=== PATIENT | male | born 1965 | race Caucasian/White ===

== ENCOUNTER 2021-10-12 00:34 | Day surgery (SDC) | payer BC, SELFPAY ==
[2021-09-24 13:50] VITALS: BMI 35.6
--- NOTE | 2021-10-09 14:14 | PM.HPGS ---
History of Present Illness History of Present Illness Consent: Risks, benefits, and alternatives have been discussed and questions answered. Patient agrees to proceed with procedure. Chief complaint: hx of colon polyps Narrative: Harlan Avlarado is a 56 year old male Referred for colon cancer screening. He has had polyps removed in the past. Review of Systems Review of Systems: All systems reviewed & are unremarkable except as noted in HPI and below PMFSH Past Medical History Medical History Arthritis Asthma BMI 34.0-34.9,adult BMI 36.0-36.9,adult BMI over 35 Bronchitis Eczema Elevated liver enzymes GERD (gastroesophageal reflux disease) History of colon polyps HTN (hypertension) Hyperlipidemia Insomnia Lumbago with sciatica, left side Protein in urine Surgical History Surgical History History of surgery on arm No pertinent past surgical history Family History Family History Father AA (alcohol abuse) Asthma Lung cancer Diabetes mellitus Hypertension Heart disease Mother Lung cancer Hypertension Depression Thyroid disease Sibling Hypertension Social History Social History Smoking status: Never smoker Additional smoking assessment comments: chewed tobacco for 35 years Alcohol intake: former Alcohol use details: quit drinking 18 years ago Substance use: never Substance use type: does not use Living arrangements: with family Spiritual care concerns: No Meds Home Medications and Allergies Home Medications Medication Instructions Recorded Confirmed Type albuterol sulfate [ProAir HFA] 1 inh INHALATION QID PRN 07/03/19 09/24/21 History fluticasone propion-salmeterol 1 inh INHALATION Q12H 07/03/19 09/24/21 History [Advair Diskus] clobetasol 0.05 % topical cream 1 applic TOPICAL BID #30 g 11/11/20 09/24/21 Rx naproxen 500 mg tablet 500 mg PO BID #180 tablet 01/28/21 09/24/21 Rx omeprazole 40 mg capsule,delayed 40 mg PO DAILY #90 cap 04/16/21 09/24/21 Rx release montelukast 10 mg tablet 10 mg PO DAILY #90 tablet 04/27/21 09/24/21 Rx escitalopram oxalate 10 mg tablet 10 mg PO DAILY #90 tablet 05/18/21 09/24/21 Rx fluticasone propionate 50 1 spray INTRANASAL BID 06/08/21 09/24/21 History mcg/actuation nasal spray,suspension amlodipine 10 mg tablet 10 mg PO DAILY #90 tablet 09/11/21 09/24/21 Rx zolpidem 10 mg tablet 10 mg PO HS PRN #30 tablet 09/17/21 09/24/21 Rx atorvastatin 40 mg tablet 20 mg PO DAILY #45 tablet 09/28/21 Rx Allergies Allergy/AdvReac Type Severity Reaction Status Date / Time No Known Allergies Allergy Verified 10/12/21 08:03 Exam Resp: Auscultation: clear to auscultation bilaterally Cardio: Rate: regular rate Rhythm: regular rhythm GI: GI Palp: Yes Soft to palpation and No Tenderness to palpation present (GI) Assessment and Plan Assessment and plan (1) Colon cancer screening: Code(s): Z12.11 - Encounter for screening for malignant neoplasm of colon Status: Acute Assessment and Plan: Colonoscopy with possible biopsy or polypectomy or cautery or injection of substances.
[2021-10-12 08:04] VITALS: BP 128/96; PULSE 85; RESP 16; TEMP 36.6; O2SAT 97
[2021-10-12 08:05] VITALS: BMI 35.2
[2021-10-12] MEDS: LACTATED RINGERS 1,000 ML 150 ML IV CONT (08:13)
--- NOTE | 2021-10-12 08:36 | WPDANESEPPF ---
Anes - Initial Pre Proc Eval Procedure: Operation Date: 10/12/21 09:00 Proposed Procedures p Screening Colonoscopy - Ian Bartlett MD Date/Time: 10/12/21 08:36 Surgeon: Ian Bartlett MD Pre Op Diagnosis: hx of colon polyps Patient Data Age: 56 Gender: M Height: 1.68 m Weight: 99.1 kg Last Vital Signs Temp 36.6 C 10/12/21 08:04 Pulse 85 10/12/21 08:04 Resp 16 10/12/21 08:04 BP 128/96 H 10/12/21 08:04 Pulse Ox 97 10/12/21 08:04 Allergies Allergy/AdvReac Type Severity Reaction Status Date / Time No Known Allergies Allergy Verified 10/12/21 08:03 Home Medications Medication Instructions Recorded Confirmed Type albuterol sulfate [ProAir HFA] 1 inh INHALATION QID PRN 07/03/19 09/24/21 History fluticasone propion-salmeterol 1 inh INHALATION Q12H 07/03/19 09/24/21 History [Advair Diskus] clobetasol 0.05 % topical cream 1 applic TOPICAL BID #30 g 11/11/20 09/24/21 Rx naproxen 500 mg tablet 500 mg PO BID #180 tablet 01/28/21 09/24/21 Rx omeprazole 40 mg capsule,delayed 40 mg PO DAILY #90 cap 04/16/21 09/24/21 Rx release montelukast 10 mg tablet 10 mg PO DAILY #90 tablet 04/27/21 09/24/21 Rx escitalopram oxalate 10 mg tablet 10 mg PO DAILY #90 tablet 05/18/21 09/24/21 Rx fluticasone propionate 50 1 spray INTRANASAL BID 06/08/21 09/24/21 History mcg/actuation nasal spray,suspension amlodipine 10 mg tablet 10 mg PO DAILY #90 tablet 09/11/21 09/24/21 Rx zolpidem 10 mg tablet 10 mg PO HS PRN #30 tablet 09/17/21 09/24/21 Rx atorvastatin 40 mg tablet 20 mg PO DAILY #45 tablet 09/28/21 Rx Patient hx anesthesia problems: none Family hx anesthesia problems: none Results Review: All pre-operative results and documents have been reviewed as part of the pre-operative evaluation. [facility] Past Medical History Medical History Arthritis Asthma BMI 34.0-34.9,adult BMI 36.0-36.9,adult BMI over 35 Bronchitis Eczema Elevated liver enzymes GERD (gastroesophageal reflux disease) History of colon polyps HTN (hypertension) Hyperlipidemia Insomnia Lumbago with sciatica, left side Protein in urine Surgical History Surgical History History of surgery on arm No pertinent past surgical history Family History Family History Father AA (alcohol abuse) Asthma Lung cancer Diabetes mellitus Hypertension Heart disease Mother Lung cancer Hypertension Depression Thyroid disease Sibling Hypertension Social History Social History Smoking status: Never smoker Additional smoking assessment comments: chewed tobacco for 35 years Alcohol intake: former Alcohol use details: quit drinking 18 years ago Substance use: never Substance use type: does not use Living arrangements: with family Spiritual care concerns: No Anes - Eval Final PreProcedure Day of Procedure 10/12/21 08:36 Patient weight: obese Heart: regular rate and rhythm Lungs: clear to auscultation Airway: Mallampati scale class II Neurological: alert and oriented Last oral intake: >/= 8 hours ASA classification: III Emergent: no Anesthetic plan: proceed Anesthesia type and monitoring: general GIVS and standard monitoring Results Review: All pre-operative results and documents have been reviewed as part of the pre-operative evaluation. Informed Consent: The patient's anesthetic plan and its attendant risks and benefits were discussed with the patient/family/POA. Questions were solicited and answers provided to the satisfaction of the patient/family/POA.
[2021-10-12 09:05] VITALS: BP 103/73; PULSE 79; RESP 19; O2SAT 93
[2021-10-12 09:15] VITALS: BP 105/76; PULSE 73; RESP 23; O2SAT 98
[2021-10-12 09:25] VITALS: BP 145/84; PULSE 69; RESP 24; O2SAT 94
== END 2021-10-12 09:48 | disposition home or self-care (01) ==
PROVIDERS: PCP Nurse Practitioner Family; Visit Provider Internal Medicine Gastroenterology
PROC: 0DJD8ZZ Inspection of Lower Intestinal Tract, Via Natural or Artificial Opening Endoscopic (ICD-10-PCS; CPT 45378; principal; 2021-10-12 09:00)
DX: Z12.11 Encounter for screening for malignant neoplasm of colon (principal); Z86.010 Personal history of colon polyps; Z79.51 Long term (current) use of inhaled steroids; M19.90 Unspecified osteoarthritis, unspecified site; J45.909 Unspecified asthma, uncomplicated; L30.9 Dermatitis, unspecified; K21.9 Gastro-esophageal reflux disease without esophagitis; I10 Essential (primary) hypertension; G47.00 Insomnia, unspecified; R74.01 Elevation of levels of liver transaminase levels; F17.220 Nicotine dependence, chewing tobacco, uncomplicated; E66.9 Obesity, unspecified; Z68.35 Body mass index [BMI] 35.0-35.9, adult
CPT/HCPCS: 45378; J2704; J7120

== ENCOUNTER 2022-03-30 07:23 | Outpatient (CLI) | payer BC, SELFPAY | END 2022-03-30 07:24 | disposition home or self-care (01) | LOC: ANHAUDIO 07:25 | PROVIDERS: PCP Nurse Practitioner Family; Visit Provider Otolaryngology | DX: H93.13 Tinnitus, bilateral (principal); H91.93 Unspecified hearing loss, bilateral | CPT/HCPCS: 92557; 92567 ==

== ENCOUNTER 2023-08-07 10:13 | Emergency (ER) | payer BC, SELFPAY ==
[2023-08-07 10:35] VITALS: BP 144/91; PULSE 109; RESP 20; TEMP 37.2; O2SAT 95
--- NOTE | 2023-08-07 11:06 | ED.URI ---
HPI - URI/Sore Throat General Chief Complaint: Upper Respiratory Infection Stated Complaint: Bodyaches/Cough Time Seen by Provider: 08/07/23 11:06 Source: patient and RN notes reviewed Mode of arrival: ambulatory Limitations: no limitations History of Present Illness HPI Narrative: 58-year-old male presents with concern for cough, headaches, sinus drainage and congestion, fatigue. Reports sore rib cage from coughing. Reports he has been using his ProAir inhaler with some relief. He reports chills. MD elicited complaint: cough Related Data Home Medications Medication Instructions Recorded Confirmed fluticasone propionate 50 1 spray intranasal BID 06/08/21 08/07/23 mcg/actuation nasal spray,suspension (Flonase Allergy Relief) fexofenadine [Adenike Allergy] 1 tab-cap PO DAILY 08/03/23 08/07/23 Allergies Allergy/AdvReac Type Severity Reaction Status Date / Time No Known Allergies Allergy Verified 08/07/23 10:23 Review of Systems Review of Systems: CONSTITUTIONAL: Reports malaise, chills., fatigue denies sweats or fever. EYES: Denies visual changes, redness, or discharge. ENT: Reports rhinorrhea, congestion. Denies sinus pain, otalgia and sore throat. CARDIOVASCULAR: Denies chest pain, palpitations, or edema. RESPIRATORY: Reports cough, rib cage pain. Denies dyspnea. GASTROINTESTINAL: Denies abdominal pain, nausea, vomiting, diarrhea SKIN: Denies rash or itching. MUSCULOSKELETAL: Denies myalgia. NEUROLOGIC: Reports headache. All systems reviewed & are unremarkable except as noted in HPI and below PMFSH Past Medical History Medical History (Updated 08/07/23 @ 11:14 by Radha Ramos NP) Abnormal CBC Anxiety and depression Arthritis Asthma BMI 34.0-34.9,adult BMI 36.0-36.9,adult BMI over 35 Bronchitis Candidiasis Eczema Elevated fasting glucose Elevated liver enzymes GERD (gastroesophageal reflux disease) History of colon polyps Normal colonoscopy on 10/12/2021 with recheck in 5 years. HTN (hypertension) Hyperlipidemia Hypersomnia Insomnia Low back pain Lumbago with sciatica, left side Obesity (BMI 30-39.9) Protein in urine Seasonal allergies Surgical History Surgical History History of surgery on arm No pertinent past surgical history Family History Family History Father AA (alcohol abuse) Asthma Lung cancer Diabetes mellitus Hypertension Heart disease Cerebrovascular accident Mother Lung cancer Hypertension Depression Thyroid disease Sibling Hypertension Grandparent Cancer Hypertension Cerebrovascular accident Grandparent Cancer Hypertension Social History Social History Smoking status: Never smoker Additional smoking assessment comments: chewed tobacco for 35 years Alcohol intake: former Alcohol use details: quit drinking 18 years ago Substance use: never Substance use type: does not use Lack of Transportation: No Lack of Food: Never True Current Housing: I Have Housing Concerned About Future Housing: No Difficulty Paying Gas/Electric Bills: No Difficulty Paying for Meds: No Currently Unemployed: No Education: High School Diploma/GED Difficulty w/ Childcare or Family Care: No Living arrangements: with family Spiritual care concerns: No Comments At time of signature, agree with nursing past medical, surgical, social and family history. There is no relevant family history pertinent to the presenting complaint Exam Narrative: GENERAL: Well-appearing, well-nourished, and in no acute distress. HEAD: Normocephalic EYES: PERRLA, conjunctivae clear ENT: Nares clear. Mucous membranes moist. TM pearly reza with sharp light reflex bilaterally; no tragal tenderness. Oropharynx not erythematous without lesions. Tonsils not enlarged and without exudate, no
== END 2023-08-07 11:20 | disposition home or self-care (01) ==
PROVIDERS: Emergency Provider Nurse Practitioner; PCP Nurse Practitioner Family
DX: J10.1 Influenza due to other identified influenza virus with other respiratory manifestations (principal); E78.5 Hyperlipidemia, unspecified; I10 Essential (primary) hypertension; Z20.822 Contact with and (suspected) exposure to COVID-19
CPT/HCPCS: 87426; 87804; 99213; G0463

== ENCOUNTER 2023-09-27 09:17 | Outpatient (CLI) | payer BC, SELFPAY ==
[2023-10-05 17:29] VITALS: BMI 35.5
--- NOTE | 2023-10-05 17:29 | WPDHOMESLEEP ---
Sleep Study - Home Unattended Date of Study: 09/27/23 Ordering Provider: Anne Burton NP Interpreting Provider: Tamar Cevallos, DO Home Sleep Study Type: Watch PAT Height: 1.68 m Weight: 99.79 kg Body Mass Index: 35.5 Neck Circumference (inches): 18.5 [place]: 14 Reason for Sleep Study Unrefreshing sleep, morning headaches Sleep History The patient is a 58-year-old male that had a sleep study ordered by his primary care for evaluation of sleep apnea. He occasionally awakens from sleep short of breath. He rarely awakens at night with heartburn, belching or cough. He is unsure if he snores. He occasionally has trouble sleeping when he has a cold. He denies waking up gasping for air throughout the night. He occasionally has breathing problems at night observed by himself or others. He denies sweating excessively at night. He rarely has heart palpitations or irregular heartbeats during the night. He occasionally falls asleep during the day but never while driving. He denies sleep paralysis, cataplexy and hypnagogic / hypnopompic hallucinations. He rarely has trouble at school or work due to sleepiness. He denies feeling afraid of going to sleep. He denies having nightmares. He denies remembering his dreams. He frequently has thoughts racing through his mind. He denies feeling sad, depressed and anxious. He occasionally has muscular tension. He occasionally notices parts of his body jerk. He is unsure if he kicks during the night. He occasionally has crawling and aching feelings in his legs and frequently has leg pain during the night. He denies grinding his teeth during sleep and denies awakening with morning jaw pain. He is occasionally bothered by pain during the day and occasionally awakened by pain during the night. He frequently wakes up feeling stiff in the morning. He occasionally wakes up with sore or achy muscles. He denies waking up with pain in the neck, spine and other joints. He goes to bed at 7:30 p.m. on weekdays and between 9-10 p.m. on the weekends. It takes him 30-45 minutes to fall asleep. He wakes up at 3:30 a.m. on weekdays and at 5:00 a.m. on the weekends. When he awakens during the night, he will eat and is able to fall back asleep within 10 minutes. He typically gets 6-7 hours of sleep per night. He does not stay in bed after waking up in the morning. He currently lives with his . He denies consuming any caffeinated beverages within 2 hours of bedtime. He denies engaging in physical exercise before bedtime. He will watch television before falling asleep. He will take naps in the afternoon or the evening and they are refreshing. He consumes 1 caffeinated beverage per day. He denies tobacco, alcohol and recreational drug use. [facility] Past Medical History Medical History Abnormal CBC Anxiety and depression Arthritis Asthma BMI 34.0-34.9,adult BMI 36.0-36.9,adult BMI over 35 Bronchitis Candidiasis Eczema Elevated fasting glucose Elevated liver enzymes GERD (gastroesophageal reflux disease) History of colon polyps Normal colonoscopy on 10/12/2021 with recheck in 5 years. HTN (hypertension) Hyperlipidemia Hypersomnia Insomnia Low back pain Lumbago with sciatica, left side Obesity (BMI 30-39.9) Protein in urine Seasonal allergies Surgical History Surgical History History of surgery on arm No pertinent past surgical history Family History Family History Father AA (alcohol abuse) Asthma Lung cancer Diabetes mellitus Hypertension Heart disease Cerebrovascular accident Mother Lung cancer Hypertension Depression Thyroid disease Sibling Hypertension Grandparent Cancer Hypertension Cerebrovascular accident Grandparent Cancer Hypertension Social History Social History (Revi
== END 2023-09-28 07:30 | disposition home or self-care (01) ==
LOC: ANHCSM 09:18
PROVIDERS: PCP Nurse Practitioner Family; Visit Provider Nurse Practitioner Family
DX: G47.33 Obstructive sleep apnea (adult) (pediatric) (principal); G47.10 Hypersomnia, unspecified; I10 Essential (primary) hypertension; F39 Unspecified mood [affective] disorder
CPT/HCPCS: 95800

== ENCOUNTER 2024-04-07 07:16 | Outpatient (CLI) | payer BC, SELFPAY ==
--- NOTE | ~2024-04-07 | US_ITS ---
US right upper quadrant INDICATION: Jaundice PROCEDURE: Realtime right upper abdominal ultrasound. COMPARISON: No prior studies for comparison. FINDINGS: The pancreas is normal without focal mass or pancreatic ductal dilation. Liver echotexture is increased, consistent with fatty infiltration. There is normal directional flow in the portal ve in. There are gallstones. Gallbladder is contracted limiting evaluation for Common bile duct measures 4 mm. No sonographic Palomares's sign. IMPRESSION: 1: Cholelithiasis. 2: Fatty infiltration of the liver. Reviewed, dictated and finalized at location B.
== END 2024-04-07 07:17 | disposition home or self-care (01) ==
LOC: MICIMG 07:16
PROVIDERS: PCP Nurse Practitioner Family; Visit Provider Nurse Practitioner Family
DX: K80.20 Calculus of gallbladder without cholecystitis without obstruction (principal); K76.0 Fatty (change of) liver, not elsewhere classified
CPT/HCPCS: 76705

== ENCOUNTER 2024-06-11 16:12 | Emergency (ER) | payer BC, SELFPAY ==
[2024-06-11 16:33] VITALS: BP 153/95; PULSE 90; RESP 18; TEMP 36.7; O2SAT 96
[2024-06-11 18:52] VITALS: BP 146/101; PULSE 81; RESP 16; O2SAT 98
--- NOTE | 2024-06-11 19:17 | ED_ITS ---
HPI - Recheck/Abnormal Lab/Rx General Chief Complaint: Recheck/Abnormal Lab/Rx <Yue Gonzalez PA-C - Last Filed: 06/11/24 19:58> Stated Complaint: abn labs <Yue Gonzalez PA-C - Last Filed: 06/11/24 19:58> Time Seen by Provider: 06/11/24 18:52 <Yue Gonzalez PA-C - Last Filed: 06/11/24 19:58> History of Present Illness HPI narrative: 58-year-old male with history of hypertension, hyperlipidemia, GERD, polycythemia presents to the emergency department for elevated bilirubin. Patient states he had outpatient labs drawn a couple days ago. States he was contacted today told to come to the ED due to ?emergently high bilirubin levels uncle. The patient reports a history of alcohol abuse but has been sober for 21 years. He does have history of elevated LFTs in the past and has been told that his liver is scarred but denies diagnosis of cirrhosis. The patient contacted his PCP's office on 02/20 after initiating oral antifungals for toenail fungus from his adjusto writer operator because he began developing yellowing to his eyes. He discontinued this medication and has been obtaining outpatient labs to evaluate the trend of his elevated bilirubin. Per chart review the patient had labs drawn on 03/01/2024 which showed a total bilirubin of 1.7, direct bilirubin of 0.3 direct bilirubin 1.4. On 06/09/2024 his lab showed a total bilirubin of 2.3, direct bilirubin of 0.4 and indirect bilirubin of 1.9. Right upper quadrant ultrasound on 04/07/2024 shows cholelithiasis with fatty infiltration of the liver. Patient states his PCP advised him to come to the ED is a are concerned that he may have a ?gallstone blocking a duct? causing his elevation in his bilirubin. The patient states his eyes are ?reza? but they have been orellana for a few months. He denies fever, nausea vomiting, abdominal pain. He reports having diarrhea for about a month <Yue Gonzalez PA-C - Last Filed: 06/11/24 19:58> Related Data Home Medications: Home Medications ?Medication ?Instructions ?Recorded ?Confirmed ?Last Taken ?Type fluticasone propionate 50 1 spray intranasal BID 06/08/21 03/14/24 Unknown History mcg/actuation nasal spray,suspension (Flonase Allergy Relief) fexofenadine [Adenike Allergy] 1 tab-cap PO DAILY 08/03/23 03/14/24 Unknown History ashwagandha extract PO 01/10/24 03/14/24 Unknown History <Yue Gonzalez PA-C - Last Filed: 06/11/24 19:58> Allergies/Adverse Reactions: Allergies Allergy/AdvReac Type Severity Reaction Status Date / Time No Known Allergies Allergy Verified 03/14/24 11:25 <Yue Gonzalez PA-C - Last Filed: 06/11/24 19:58> Review of Systems 2 Review of Systems: All systems reviewed & are unremarkable except as noted in HPI and below <Yue Gonzalez PA-C - Last Filed: 06/11/24 19:58> [facility] Past Medical History Medical History: Medical History Elevated bilirubin Anxiety Restless legs syndrome Polycythemia Abnormal CBC Hypersomnia Low back pain Anxiety and depression Seasonal allergies Obesity (BMI 30-39.9) Candidiasis Elevated fasting glucose BMI 36.0-36.9,adult Lumbago with sciatica, left side BMI over 35 Protein in urine Elevated liver enzymes Eczema GERD (gastroesophageal reflux disease) History of colon polyps Normal colonoscopy on 10/12/2021 with recheck in 5 years. Insomnia BMI 34.0-34.9,adult Arthritis HTN (hypertension) Hyperlipidemia Bronchitis Asthma <Yue Gonzalez PA-C - Last Filed: 06/11/24 19:58> Surgical History Surgical History: Surgical History History of surgery on arm No pertinent past surgical history <Yue Gonzalez PA-C - Last Filed: 06/11/24 19:58> Family History Family History: Family History Father AA (alcohol abuse) Asthma Lung cancer Diabetes mellitus Hypertension Heart disease Cerebrovascular accident Mother Lung cancer Hypertension Depression Thyroid disease Sibling Hypertension Grandparent Cancer Hypertension Cerebrovascular accident Grandparent Cancer Hypertension <Yue Gonzalez PA-C - Last Filed: 06/11/24 19:58> Social History Social History: Social History Smoking status: Never smoker Additional smoking assessment comments: chewed tobacco for 35 years Alcohol intake: former Alcohol use details: quit drinking 18 years ago Substance use: never Substance use type: does not use Lack of Transportation: No Lack of Food: Never True Current Housing: I Have Housing Concerned About Future Housing: No Difficulty Paying Gas/Electric Bills: No Difficulty Paying for Meds: No Currently Unemployed: No Education: High School Diploma/GED Difficulty w/ Childcare or Family Care: No Living arrangements: with family Spiritual care concerns: No <Yue Gonzalez PA-C - Last Filed: 06/11/24 19:58> Exam 2 Narrative: GENERAL: Well-appearing, well-nourished, and in no acute distress. HEAD: Normocephalic, atraumatic. EYES: PERRLA and EOMI. No scleral icterus, sclerae are mildly dulled and reza ENT: Nares clear, no rhinorrhea or epistaxis. Mucous membranes moist. NECK: Supple. CHEST: Clear to auscultation. No respiratory distress. HEART: Regular rate and rhythm. No murmur heard. Normal peripheral pulses. ABDOMEN: Soft, nontender, nondistended, normal active bowel sounds. No rebound, guarding or rigidity. Negative Palomares's EXTREMITIES: Normal range of motion. No edema. SKIN: Warm, dry, no rash. NEURO: No focal deficits. Alert and oriented x3 <Yue Gonzalez PA-C - Last Filed: 06/11/24 19:58> Course STEAM PLANT OPERATOR/PA Physician Supervision For this patient encounter, I reviewed the STEAM PLANT OPERATOR or PA documentation, treatment plan, and medical decision making and had [id number] time with this patient. I performed all aspects of the MDM as documented. <Zulema Mayers MD - Last Filed: 06/12/24 01:23> Vital Signs Vital signs: Vital Signs Temperature 98.1 F 06/11/24 16:33 Pulse Rate 90 06/11/24 16:33 Respiratory Rate 18 06/11/24 16:33 Blood Pressure 153/95 H 06/11/24 16:33 Pulse Oximetry 96 06/11/24 16:33 Temperature 98.1 F 06/11/24 16:33 Pulse Rate 81 06/11/24 18:52 Respiratory Rate 16 06/11/24 18:52 Blood Pressure 146/101 H 06/11/24 18:52 Pulse Oximetry 98 06/11/24 18:52 <Yue Gonzalez PA-C - Last Filed: 06/11/24 19:58> Vital Signs Temperature 98.1 F 06/11/24 16:33 Pulse Rate 90 06/11/24 16:33 Respiratory Rate 18 06/11/24 16:33 Blood Pressure 153/95 H 06/11/24 16:33 Pulse Oximetry 96 06/11/24 16:33 Temperature 98.1 F 06/11/24 16:33 Pulse Rate 81 06/11/24 18:52 Respiratory Rate 16 06/11/24 18:52 Blood Pressure 146/101 H 06/11/24 18:52 Pulse Oximetry 98 06/11/24 18:52 <Zulema Mayers MD - Last Filed: 06/12/24 01:23> MDM - Recheck/Abnormal Lab/Rx MDM Narrative Medical decision making narrative: 58-year-old male presents to the emergency department after his PCP recommended him to come to the ED for abnormal bilirubin drawn on outpatient labs. Vitals without the or pressure, otherwise unremarkable. Patient is resting comfortably in exam bed and largely well appearing. He does have mild dull and reza sclera but no scleral icterus, no jaundice. His abdomen is soft and nontender. Negative [place]. CBC shows no leukocytosis, no anemia. Chemistries are largely unremarkable. Hepatic panel shows a total bilirubin of 1.9, direct bilirubin is 0. AST,, ALT and alk-phos are normal. Patient has normal bilirubin levels range between 1.6-2 per chart review. I feel this is likely a chronic Issue and not explained by acute pathology. Feel he is safe to follow up outpatient. I did discuss strict ED return precautions. He is agreeable with the plan verbalized understanding. Discharged in stable condition. <Yue Gonzalez PA-C - Last Filed: 06/11/24 19:58> Lab Data Result diagrams: 06/11/24 19:20 06/11/24 19:20 <Yue Gonzalez PA-C - Last Filed: 06/11/24 19:58> Labs: Lab Results 06/11/24 Range/Units 19:20 WBC 8.6 (4.5-10.0) K/mm3 RBC 4.62 (4.6-6.20) M/mm3 Hgb 16.0 (14.0-18.0) g/dL Hct 43.0 (42.0-52.0) % MCV 93.1 (80-100) fl MCH 34.6 H (26-34) pg MCHC 37.2 H (32-36) g/dl RDW 11.9 (11.5-14.5) % Plt Count 250 (150-375) k/mm3 MPV 9.1 (7.4-10.4) fl Immature Gran % (Auto) 0.2 (0-0.5) % Neut % (Auto) 63.2 (45.5-73.1) % Lymph % (Auto) 23.3 (18.3-44.2) % [place] % (Auto) 10.4 H (2.6-8.5) % Eos % (Auto) 2.3 (0-4.4) % Baso % (Auto) 0.6 (0.2-1.2) % Lymph # (Auto) 2.00 (0.9-3.2) K/mm3 [place] # (Auto) 0.9 H (0.1-0.6) K/mm3 Eos # (Auto) 0.2 (0-0.3) K/mm3 Baso # (Auto) 0.1 (0.0-0.1) K/mm3 Abs Immat Gran (auto) 0.02 (0.00-0.031) K/mm3 Absolute Neuts (auto) 5.4 (1.3-6.7) K/mm3 Absolute Nucleated RBC 0.000 (0.0-0.012) K/mm3 Nucleated RBC % 0.0 (0.0-0.2) % Sodium 139 (137-145) mmol/L Potassium 3.8 (3.4-5.0) mmol/L Chloride 108 H (98-107) mmol/L Carbon Dioxide 25 (22-30) mmol/L Anion Gap 6 (4-12) mmol/L BUN 16 (9-20) mg/dL Creatinine 0.90 (0.7-1.3) mg/dL Estim Creat Clear Calc 84 ml/min Estimated GFR > 60 (59 - ) Glucose 97 (65-110) mg/dL Calcium 9.4 (8.4-10.2) mg/dL Total Bilirubin 1.9 H (0.2-1.3) mg/dL Direct Bilirubin 0.0 (0-0.3) mg/dL AST 36 (17-59) U/L ALT 45 (6-50) U/L Alkaline Phosphatase 115 (38-126) U/L Total Protein 7.0 (6.3-8.2) g/dL Albumin 4.6 (3.5-5.1) g/dL <Yue Gonzalez PA-C - Last Filed: 06/11/24 19:58> Lab Results 06/11/24 Range/Units 19:20 WBC 8.6 (4.5-10.0) K/mm3 RBC 4.62 (4.6-6.20) M/mm3 Hgb 16.0 (14.0-18.0) g/dL Hct 43.0 (42.0-52.0) % MCV 93.1 (80-100) fl MCH 34.6 H (26-34) pg MCHC 37.2 H (32-36) g/dl RDW 11.9 (11.5-14.5) % Plt Count 250 (150-375) k/mm3 MPV 9.1 (7.4-10.4) fl Immature Gran % (Auto) 0.2 (0-0.5) % Neut % (Auto) 63.2 (45.5-73.1) % Lymph % (Auto) 23.3 (18.3-44.2) % [place] % (Auto) 10.4 H (2.6-8.5) % Eos % (Auto) 2.3 (0-4.4) % Baso % (Auto) 0.6 (0.2-1.2) % Lymph # (Auto) 2.00 (0.9-3.2) K/mm3 [place] # (Auto) 0.9 H (0.1-0.6) K/mm3 Eos # (Auto) 0.2 (0-0.3) K/mm3 Baso # (Auto) 0.1 (0.0-0.1) K/mm3 Abs Immat Gran (auto) 0.02 (0.00-0.031) K/mm3 Absolute Neuts (auto) 5.4 (1.3-6.7) K/mm3 Absolute Nucleated RBC 0.000 (0.0-0.012) K/mm3 Nucleated RBC % 0.0 (0.0-0.2) % Sodium 139 (137-145) mmol/L Potassium 3.8 (3.4-5.0) mmol/L Chloride 108 H (98-107) mmol/L Carbon Dioxide 25 (22-30) mmol/L Anion Gap 6 (4-12) mmol/L BUN 16 (9-20) mg/dL Creatinine 0.90 (0.7-1.3) mg/dL Estim Creat Clear Calc 84 ml/min Estimated GFR > 60 (59 - ) Glucose 97 (65-110) mg/dL Calcium 9.4 (8.4-10.2) mg/dL Total Bilirubin 1.9 H (0.2-1.3) mg/dL Direct Bilirubin 0.0 (0-0.3) mg/dL AST 36 (17-59) U/L ALT 45 (6-50) U/L Alkaline Phosphatase 115 (38-126) U/L Total Protein 7.0 (6.3-8.2) g/dL Albumin 4.6 (3.5-5.1) g/dL <Zulema Mayers MD - Last Filed: 06/12/24 01:23> Discharge Plan Discharge Clinical Impression: Elevated bilirubin <Yue Gonzalez PA-C - Last Filed: 06/11/24 19:58> Patient Disposition: Home, Self-Care <Yue Gonzalez PA-C - Last Filed: 06/11/24 19:58> Condition: Stable <Yue Gonzalez PA-C - Last Filed: 06/11/24 19:58> Instructions: Antibiotic Form, Normal Exam (ED) <Yue Gonzalez PA-C - Last Filed: 06/11/24 19:58> Additional Instructions: Your evaluated in the emergency department for elevated bilirubin levels seen on outpatient labs. Her bilirubin level here is 1.9. Your labs normally range between 1.6 and 2. I feel this is likely a chronic issue and be followed up with her primary care provider. Return to the emergency department if you develop fever, abdominal pain, vomiting, or other concerning symptoms. Follow up with the GI doctor. <Yue Gonzalez PA-C - Last Filed: 06/11/24 19:58> Patient Language: Tunisian <Yue Gonzalez PA-C - Last Filed: 06/11/24 19:58> Prescriptions: No Action nystatin 100,000 unit/gram cream 1 applic topical BID Qty: 30 5RF Rx Instructions: discontinue the combination cream for yeast. clobetasol 0.05 % cream 1 applic topical BID Qty: 45 2RF Rx Instructions: apply up to 2 weeks at a time fexofenadine [Adenike Allergy] 1 tab-cap PO DAILY escitalopram oxalate 20 mg tablet 20 mg PO DAILY Qty: 90 3RF atorvastatin 10 mg tablet 10 mg PO DAILY Qty: 90 3RF montelukast 10 mg tablet 10 mg PO DAILY Qty: 90 3RF ashwagandha extract PO fluticasone propionate [Flonase Allergy Relief] 50 mcg/actuation spray,suspension 1 spray intranasal BID Rx Instructions: administer into each nostril sildenafil [Viagra] 100 mg tablet 100 mg PO DAILY PRN (Reason: sexual activity) Qty: 5 11RF Rx Instructions: administer 30 minutes to 4 hours before activity amlodipine 10 mg tablet 10 mg PO DAILY Qty: 90 3RF albuterol sulfate 90 mcg/actuation HFA aerosol inhaler 1 - 2 inh inhalation Q4-6H PRN (Reason: shortness of breath or wheezing) Qty: 8.5 11RF zolpidem 10 mg tablet 10 mg PO HS PRN (Reason: insomnia) Qty: 30 5RF omeprazole 40 mg capsule,delayed release(DR/EC) 40 mg PO DAILY Qty: 90 3RF fluticasone propion-salmeterol [Wixela Inhub] 250-50 mcg/dose blister with device 1 inh inhalation BID Qty: 60 11RF fexofenadine-pseudoephedrine [Adenike-D 12 Hour] 60-120 mg tablet extended release 12 hr 1 tablet PO Q12H PRN (Reason: allergy symptoms) Qty: 30 2RF naproxen 500 mg tablet 500 mg PO BID Qty: 180 3RF <Yue Gonzalez PA-C - Last Filed: 06/11/24 19:58> Follow-up/Referrals: Anne Burton NP [Primary Care Provider] - Shamar Jacobs MD [Physician] - <Yue Gonzalez PA-C - Last Filed: 06/11/24 19:58>
[2024-06-11 19:28] LABS: Basophils Absolute Auto 0.1 K/mm3 (0.0-0.1); Basophils Percent Auto 0.6 % (0.2-1.2); Eosinophils Absolute Auto 0.2 K/mm3 (0-0.3); Eosinophils Percent Auto 2.3 % (0-4.4); Immature Granulocyte Absolute 0.02 K/mm3 (0.00-0.031); Immature Granulocyte Percent A 0.2 % (0-0.5); Lymphocytes Percent Auto 23.3 % (18.3-44.2); Mean Corpuscular HGB Conc 37.2 g/dl (32-36); Mean Corpuscular Hemoglobin 34.6 pg (26-34); Mean Corpuscular Volume 93.1 fl (80-100); Mean Platelet Volume 9.1 fl (7.4-10.4); Monocytes Absolute Auto 0.9 K/mm3 (0.1-0.6); Monocytes Percent Auto 10.4 % (2.6-8.5); Neutrophils Absolute Auto 5.4 K/mm3 (1.3-6.7); Neutrophils Percent Auto 63.2 % (45.5-73.1); Platelet Count Result 250 k/mm3 (150-375); Red Blood Count 4.62 M/mm3 (4.6-6.20); Red Cell Distribution Width 11.9 % (11.5-14.5); White Blood Count 8.6 K/mm3 (4.5-10.0)
[2024-06-11 19:39] LABS: Alanine Aminotransferase 45 U/L (6-50); Albumin Level 4.6 g/dL (3.5-5.1); Alkaline Phosphatase 115 U/L (38-126); Anion Gap 6 mmol/L (4-12); Aspartate Amino Transferase 36 U/L (17-59); Bilirubin,Total 1.9 mg/dL (0.2-1.3); Blood Urea Nitrogen 16 mg/dL (9-20); Calcium 9.4 mg/dL (8.4-10.2); Carbon Dioxide 25 mmol/L (22-30); Chloride 108 mmol/L (98-107); Estimated CRCL calculation 84 ml/min; Estimated Glomerular Filt Rate > 60; Glucose 97 mg/dL (65-110); Potassium 3.8 mmol/L (3.4-5.0); Sodium 139 mmol/L (137-145)
== END 2024-06-11 20:03 | disposition home or self-care (01) ==
PROVIDERS: Emergency Provider Physician Assistant; PCP Nurse Practitioner Family
DX: E80.6 Other disorders of bilirubin metabolism (principal); E78.5 Hyperlipidemia, unspecified; K21.9 Gastro-esophageal reflux disease without esophagitis; I10 Essential (primary) hypertension; F41.8 Other specified anxiety disorders; J45.909 Unspecified asthma, uncomplicated
CPT/HCPCS: 36415; 80048; 80076; 85025; 99283

== ENCOUNTER 2024-10-22 14:33 | Outpatient (CLI) | payer BC, SELFPAY ==
--- NOTE | ~2024-10-22 | CT_ITS ---
EXAMINATION: CT sinus wo con DATE: 10/22/2024 14:45 INDICATION: Chronic sinusitis TECHNIQUE: Computed tomography (CT) of the paranasal sinuses was performed without intravenous contra st. The dose-length product was 257.01 mGy-cm. Automated exposure control and iterative reconstructio n technique were employed. COMPARISON: None FINDINGS: No significant mucosal thickening. Leftward nasal septal deviation. Ostiomeatal units are p atent. No air-fluid levels. No mucoperiosteal reaction. Mastoids are pneumatized. No midline shift. IMPRESSION: 1. No significant sinus disease. Reviewed, dictated and finalized at location A.
== END 2024-10-22 14:34 | disposition home or self-care (01) ==
LOC: MICIMG 14:34
PROVIDERS: PCP Nurse Practitioner Family; Visit Provider Otolaryngology Otolaryngology/Facial Plastic Surgery
DX: J32.9 Chronic sinusitis, unspecified (principal)
CPT/HCPCS: 70486